=== PATIENT | female | born 1990 | race Caucasian/White ===

== ENCOUNTER 2024-03-19 20:00 | Emergency (ER) | payer SELFPAY ==
[~2024-03-19] VITALS: Ht 160 cm; Wt 54.4 kg
[2024-03-19] MEDS ORDERED: CLINDAMYCIN 900MG/D5W 100ML IVPB **ER PYXIS ONLY IJ ONE (20:31)
[2024-03-19] MEDS ORDERED: DOXYCYCLINE HYCLATE 100 MG TABLET ONE (20:31)
[2024-03-19] MEDS ORDERED: ONDANSETRON 4 MG/2 ML VIAL ONE (20:31)
[2024-03-19] MEDS ORDERED: HYDROMORPHONE 1 MG/1 ML DISP.SYRIN ONE (20:31)
[2024-03-19] MEDS: DOXYCYCLINE HYCLATE 100 MG TABLET PO ONE (20:45)
[2024-03-19] MEDS: ONDANSETRON 4 MG/2 ML VIAL IV ONE (20:45)
[2024-03-19] MEDS: HYDROMORPHONE 1 MG/1 ML DISP.SYRIN IV ONE (20:46)
[2024-03-19] MEDS: CLINDAMYCIN PHOSPHATE IV 900 MG in IV DEXTROSE 5% 100 ML IV ONE (20:50)
[2024-03-19] MEDS: IV NORMAL SALINE 1000 ML BAG IV ONE (20:50)
[2024-03-19] MEDS ORDERED: DOXY-326 PO (21:23)
[2024-03-19] MEDS ORDERED: CLIN300C12 PO (21:23)
[2024-03-19] MEDS ORDERED: ACETAMINOPHEN 500 MG TABLET ONE (21:25)
[2024-03-19] MEDS: ACETAMINOPHEN 500 MG TABLET PO ONE (21:27)
[2024-03-19 21:49] VITALS: BP 102/67; TEMP 97.2; O2SAT 97
== END 2024-03-19 21:45 | disposition home or self-care (01) ==
LOC: ER 20:03
DX: S41.131A Puncture wound without foreign body of right upper arm, initial encounter (principal); F32.A Depression, unspecified; Z79.899 Other long term (current) drug therapy; W54.0XXA Bitten by dog, initial encounter; Y93.89 Activity, other specified; Y92.89 Other specified places as the place of occurrence of the external cause; Y99.8 Other external cause status
CPT/HCPCS: 73090; 73130; A4606; A4663; A9150; J1170; J2405; J3490; J7040